=== PATIENT | male | born 1945 | race Caucasian/White ===

== ENCOUNTER 2019-03-29 12:43 | Outpatient (CLI) | payer MEDICARE ==
--- NOTE | 2019-03-29 15:21 | ULT ---
BILATERAL CAROTID DUPLEX ULTRASOUND: HISTORY: Carotid bruit. TECHNIQUE: Jones scale, color flow, and spectral Doppler imaging of the extracranial carotid artery systems was p erformed bilaterally. FINDINGS: There is plaque formation on both sides. The peak systolic velocity in the right ICA measures 131 cm/s with an end-diastolic velocity of 27 cm /s and a systolic ratio of 0.91. The peak systolic velocity in the left ICA measures 91 cm/s with an end-diastolic velocity of 34 cm/s and a systolic ratio of 0.29. Flow in both vertebral arteries remains antegrade. IMPRESSION: Moderate (50-69%) stenosis involving the right internal carotid artery. POS: OFF
== END 2019-03-29 12:44 | disposition home or self-care (01) ==
LOC: ULT 12:43
PROVIDERS: ATTEND Family Medicine
DX: R09.89 Other specified symptoms and signs involving the circulatory and respiratory systems (principal); I65.21 Occlusion and stenosis of right carotid artery
CPT/HCPCS: 93880

== ENCOUNTER 2020-02-24 13:22 | Inpatient (IN) | payer MEDICARE, OTHER ==
[2020-02-24] MEDS ORDERED: Nitroglycerin 0.4 MG TAB (25 Tab Bottle) SL PRN (14:18)
[2020-02-24] MEDS ORDERED: Zolpidem Tartrate 5 MG TAB PO PRN (14:20)
[2020-02-24] MEDS ORDERED: Milk Of Magnesia 30 ML UDCUP PO PRN (14:21)
[2020-02-24] MEDS ORDERED: Acetaminophen 325 MG TAB PO PRN (14:21)
[2020-02-24 14:27] LABS: #Lymphocytes 1.1 thou/uL (1.20-3.40); #Monocytes 0.4 thou/uL (0.11-0.59); #Neutrophils 12.7 thou/uL (1.40-6.50); %Basophils 0.1 % (0.0-1.0); %Eosinophils 0.3 % (0.0-10.0); %Lymphocytes 7.9 % (21.0-51.0); %Monocytes 2.8 % (0.0-10.0); %Neutrophils 88.9 % (42.0-75.0); Hemoglobin 12.3 g/dL (14.0-18.0); Mean Corpuscular HGB CONC 32.1 g/dL (32.0-36.0); Mean Corpuscular Hemoglobin 30.9 pg (27.0-31.0); Mean Corpuscular Volume 96.1 fL (78.0-98.0); Mean Platelet Volume 8.6 fL (7.4-10.4); Platelet Count 290 thou/uL (130-400); RBC Distribution Width 13.2 % (11.5-14.5); Red Blood Cell (RBC) Count 3.98 mill/uL (4.70-6.10); White Blood Cell (WBC) Count 14.2 thou/uL (4.8-10.8)
[2020-02-24] MEDS ORDERED: Aspirin 325 mg Enteric Coated Tablet PO SCH (14:30)
[2020-02-24 14:53] LABS: Cardiac Risk 2.7 (Less than 4.5)
--- NOTE | 2020-02-24 15:13 | RAD ---
Exam: Chest one view HISTORY:Pre-CABG evaluation. Comparison: 09/25/2019 FINDINGS: Cardiac silhouette: Normal Aorta: Atherosclerosis of the aorta Pulmonary vessels: Normal Costophrenic angles: Clear LUNGS: No masses or consolidation. Pneumothorax: None Osseous abnormalities: None IMPRESSION: No acute cardiopulmonary process. Atherosclerosis.
[2020-02-24 15:57] LABS: Bacteria/HPF None Seen HPF (None Seen); Bilirubin Negative (Negative); Blood, Urine Negative (Negative); Clarity Clear (Clear); Glucose, Urine (Dipstick) Normal (Negative); Leukocyte Negative Leu/uL (Negative); Nitrite Negative (Negative); Protein, Urine (Dipstick) Negative (Neg-Trace); RBC/HPF 0-3 HPF (0-3); Squamous Epithelial None Seen HPF (0-3); Urobilinogen Normal mg/dL (Less than 2); WBC/HPF 0-3 HPF (0-3)
[2020-02-24 15:58] LABS: Urine Culture Reflex No No
[2020-02-24] MEDS ORDERED: Communication Order-Pharmacy FS SCH (16:47)
--- NOTE | 2020-02-24 19:01 | ULT ---
CAROTID DOPPLER: 02/24/20 INDICATIONS: Screening prior to CABG procedure. TECHNIQUE: Ultrasound Doppler study performed in the extracranial carotid arteries. Color Doppler with spectral analysis and velocity recordings obtained. FINDINGS: Ultrasound images show intimal thickening and scattered echogenic plaque in the bulbs and internal ca rotid arteries. Velocity records show increased velocities in the right internal carotid artery with a peak systolic velocity recorded at 140 cm/s systolic. Increased velocities are also recorded in the right common ca rotid at 133 cm/s systolic and in the left common carotid at 135 cm/s systolic. Vertebral arteries show antegrade flow. IMPRESSION: 1. Intimal thickening and mild to moderate echogenic plaque bilaterally. 2. Evidence of hemodynamically significant stenosis in the right internal carotid artery. 3. Elevated velocities recorded in both common carotid arteries. Correlation made to a previous carotid Doppler study dated 03/29/19. That exam also describes increase d velocities in the right internal carotid artery measured at 131 cm/s at that time. Consider further characterization with catheter angiogram or CTA of neck. POS: APARNA
[2020-02-24 19:59] LABS: Troponin I 0.555 ng/mL (< 0.028)
[2020-02-24] MEDS ORDERED: Docusate 100 MG CAP PO SCH (21:00)
[2020-02-24] MEDS ORDERED: Rosuvastatin 10 MG TAB PO SCH (21:00)
[2020-02-24] MEDS ORDERED: Amitriptyline HCl 25 MG TAB PO SCH (21:00)
--- NOTE | 2020-02-24 22:59 | CON ---
DATE OF CONSULTATION: 02/24/2020 REQUESTING PHYSICIAN: Dr. Guido. PRIMARY CARE PHYSICIAN: Dr. Sebas Santana. CHIEF COMPLAINT: Shortness of breath. HISTORY OF PRESENT ILLNESS: The patient is a 74-year-old man who over the last few months has had new onset of severe headaches. His first really bad headache started in his neck and jaws and progressed upward, and then was associated with shortness of breath. Equivocates about whether there is any true chest discomfort. It was bad enough that he prompted his to call EMS, and they described that upon their arrival, checking an EKG and reassuring him that he was not having a heart attack. He had a checkup with his primary care physician a couple of days later, and Dr. Santana referred him to Dr. Guido. He was started on Protonix, which seemed to have helped his chest pressure. Echocardiography demonstrated an LVEF of around 50% to 55%. Lexiscan stress test showed a resting EF of 45% and a stress EF of 46% . Of note, there was a fixed inferior wall defect, severe hypokinesis of the septum, and mild global hypokinesis with some lateral ischemia. Cardiac catheterization done today, demonstrates an EF on the order of about 30% or 35% and a long very high-grade stenosis in his LAD starting at about the first septal bat person. 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 He reports having undergone some sort of procedure to remove scar tissue with no improvement in his vision. He underwent esophageal dilatations over about a 3-year period of time from 2013 to 2017. CURRENT MEDICATIONS: 1. Lisinopril/hydrochlorothiazide 10/12.5 once a day. 2. Crestor 10 mg a day. 3. Motrin 2 to 3 tablets a day 4.Prednisone has been taking 20 mg a day and just went to 10 mg a day for his headaches. 4. Elavil 50 mg at bedtime. 5. Allopurinol 300 mg a day. 6. In the hospital, Protonix 40 mg a day has been added. SOCIAL HISTORY: The patient quit smoking in the . He reports nausea and vomiting with doxycycline. FAMILY HISTORY: Significant for lymphoma in his mother. His father in an accident. He has an 80-year-old sister without any known cardiovascular problems. None of his children have any known cardiovascular problems. REVIEW OF SYSTEMS: Negative for any transient eye, speech, facial, or extremity symptoms consistent with TIAs. It is positive for burning pain in his hips when he walks uphill. Negative for any shortness of breath, chest pain, orthopnea, or PND prior to this onset. PHYSICAL EXAMINATION: GENERAL: He is in no distress. VITAL SIGNS: 5 feet and 8 inches, 166 pounds. Heart rate is 66, blood pressure of 120/63, temperature is 98.4, room air O2 saturations are 96%. NECK: He has no xanthelasma. No JVD. He has bilateral carotid bruits. CHEST: Clear to auscultation. He has regular rate and rhythm without murmur or gallop. ABDOMEN: Soft and nontender without masses or bruits. He has palpable radial, femoral, and popliteal pulses bilaterally. His femoral pulses perhaps are slightly diminished, both were associated with bruits. He has strong right posterior tibial pulse. I was not able to palpate either dorsalis pedis pulse of the left or posterior tibial pulse. Capillary refill in his right foot is brisk; in the left foot, it is about 1-1/2 or perhaps 2 seconds. LABORATORY DATA: White count of 14.2, hemoglobin 12.3, hematocrit 38.3, platelets 290,000. Going back as far as January of 2019 and as recently as January of this year, his BUN and creatinine were in the 16 to 17 range and creatinine in the 0.9 range at an outside lab prior to his catheterization. Today his BUN was 18, creatinine 1.1, glucose was 95. His chest x-ray shows some prominence to the vascular markings in the lung with an aortic knob calcification and some slight aortic ectasia, perhaps some flattening of his diaphragms. His carotid ultrasound shows mild amount of plaque in both common carotids and bulbs with internal carotid velocities on the right side of 128, 140, and 128, common carotid velocities of 113, 133, and 133 for a ratio of 1.05. On the left side, internal carotid velocities were 72, 85, and 94. Common carotid velocities were 137, 133, 136, ratio of 0.69. Cardiac catheterization shows right-dominant system. He has some luminal irregularity starting almost at the ostium of the LAD to about its first septal bat person. There is a fairly long segment of diffuse disease with areas of high-grade stenosis including one area that is probably about 95% stenotic involves the diagonal, but it is a very small diagonal. He has a large ramus intermedius that bifurcates distally and there is some mild luminal irregularity in the proximal portion of it, but the stenosis probably only measures on the order of 20% or 30%. He has a high-grade proximal stenosis in his circumflex, but pretty much stays in the groove of the OMs or very small vessels. His right coronary which is dominant and has some mild luminal irregularity in the midportion, has a fairly large arborized posterolateral branch that serves the same distribution as the circumflex would. LVEF is around 30% or 35%. IMPRESSION AND RECOMMENDATION: Severe left anterior descending artery disease with decreasing left ventricular function. We will plan on coronary artery bypass grafting. His carotid disease warrants annual surveillance. His suspected inflow disease causing hip claudication symptoms can be addressed at a later date. Job ID: [id number] [facility]
[2020-02-25] MEDS ORDERED: Albumin 5% 500 ML ONE (06:34)
[2020-02-25] MEDS ORDERED: Fentanyl 250 MCG/5 ML VIAL ONE (06:48)
[2020-02-25] MEDS ORDERED: Dexmedetomidine 200 MCG/2 ML VIAL ONE (06:48)
[2020-02-25] MEDS ORDERED: Midazolam HCl 5 mg/5 ml Vial ONE (06:48)
[2020-02-25] MEDS ORDERED: Heparin 10,000 UNITS/1 ML VIAL 30,000 UNITS in Sodium Chloride 0.9% 1,000 ML FS SCH (07:00)
[2020-02-25] MEDS ORDERED: Midazolam HCl 2 mg/2 ml Vial ONE (07:06)
[2020-02-25] MEDS ORDERED: CEFAZOLIN 2 GM in Premix Bag 1 BAG IVPB SCH (07:15)
[2020-02-25] MEDS ORDERED: Milrinone 10 MG/10 ML VIAL ONE (07:31)
[2020-02-25] MEDS ORDERED: predniSONE 20 MG TAB PO SCH ×2 (09:00→18:00)
[2020-02-25] MEDS ORDERED: Aspirin 325 mg Enteric Coated Tablet PO SCH (09:00)
[2020-02-25] MEDS ORDERED: Allopurinol 300 MG TAB PO SCH (09:00)
[2020-02-25] MEDS ORDERED: Lisinopril/Hydrochlorothiazide 10 mg/12.5 mg Tablet PO SCH (09:00)
[2020-02-25] MEDS ORDERED: Insulin Regular 300 UNITS/3 ML VIAL ONE (09:13)
[2020-02-25] MEDS ORDERED: Vecuronium 10 MG VIAL ONE (10:03)
[2020-02-25] MEDS ORDERED: Lidocaine 1% PF 5 ML VIAL ONE (10:03)
[2020-02-25] MEDS ORDERED: Ketorolac Tromethamine 30 MG/ML VIAL ONE (10:03)
[2020-02-25] MEDS ORDERED: Ondansetron PF 4 MG/2 ML Vial ONE (10:03)
[2020-02-25] MEDS ORDERED: Glycopyrrolate 0.2 MG/ML 5 ML SYRINGE ONE (10:03)
[2020-02-25] MEDS ORDERED: PROPOFOL 200 MG/20 ML VIAL ONE (10:03)
[2020-02-25] MEDS ORDERED: Post-Op Insulin Drip Protocol IVPB ONE (10:25)
[2020-02-25] MEDS ORDERED: niCARdipine 25 MG in Sodium Chloride 0.9% 250 ML 240 ML IVPB PRN (10:25)
[2020-02-25] MEDS ORDERED: Norepinephrine 8 MG/0.9% NS 250 ML IVPB PRN (10:25)
[2020-02-25] MEDS ORDERED: Bisacodyl 10 MG SUPP PR PRN (10:25)
[2020-02-25] MEDS ORDERED: hydrALAZINE 20 MG/ML VIAL SLOW IVP PRN (10:25)
[2020-02-25] MEDS ORDERED: Mag-Al 1200 mg/1200 mg/30 ML UDCUP PO PRN (10:25)
[2020-02-25] MEDS ORDERED: Bisacodyl 5 MG TAB PO PRN (10:25)
[2020-02-25] MEDS ORDERED: Promethazine HCl 25 MG/ML VIAL IM PRN (10:25)
[2020-02-25] MEDS ORDERED: Potassium Chloride 20 MEQ/100 ML PREMIX BAG IVPB PRN (10:25)
[2020-02-25] MEDS ORDERED: Fentanyl 100 MCG/2 ML VIAL SLOW IVP PRN (10:25)
[2020-02-25] MEDS ORDERED: Guaifenesin DM 100-10/5 ML UDCUP PO PRN (10:25)
[2020-02-25] MEDS ORDERED: Morphine 2 MG/ML SYRINGE SLOW IVP PRN ×2 (10:25→17:54)
[2020-02-25] MEDS ORDERED: Acetaminophen 325 MG TAB PO PRN (10:25)
[2020-02-25] MEDS ORDERED: Nitroglycerin 50 MG/250 ML BOT 250 ML IVPB PRN (10:25)
[2020-02-25] MEDS ORDERED: Hetastarch 6% 500 ML 500 ML IVPB PRN (10:25)
[2020-02-25] MEDS ORDERED: Ondansetron PF 4 MG/2 ML Vial IVP PRN (10:25)
[2020-02-25] MEDS ORDERED: Dextrose 5% in Water 1,000 ML IV PRN (10:34)
[2020-02-25] MEDS ORDERED: Dextrose 50% Abboject 50 ML SYRINGE SLOW IVP PRN (10:34)
[2020-02-25] MEDS ORDERED: HUMULIN R 100 UNITS in Sodium Chloride 0.9% 100 ML IVPB SCH (10:34)
[2020-02-25] MEDS ORDERED: Insulin Regular 300 UNITS/3 ML VIAL SC PRN (10:34)
[2020-02-25] MEDS ORDERED: Heparin 30,000 units/30 ml VIAL ONE (10:35)
[2020-02-25] MEDS ORDERED: Sodium Bicarb 50 MEQ/50 ML Abboject 8.4% SYRINGE ONE (10:35)
[2020-02-25] MEDS ORDERED: Magnesium Sulfate 1 GM/2 ML VIAL ONE (10:35)
[2020-02-25] MEDS ORDERED: Papaverine 60 MG/2 ML VIAL ONE (10:35)
[2020-02-25] MEDS ORDERED: DOPamine 400 MG/10 ML VIAL ONE (10:35)
[2020-02-25] MEDS ORDERED: Lidocaine 2% PF 5 ML VIAL ONE (10:35)
[2020-02-25] MEDS ORDERED: Aminocaproic Acid 5 GM/20 ML VIAL ONE (10:35)
[2020-02-25] MEDS ORDERED: Potassium Chloride 60 MEQ/30 ML VIAL ONE (10:35)
[2020-02-25] MEDS ORDERED: Calcium Chloride 1 GM/10 ML Abboject SYRINGE ONE (10:35)
[2020-02-25] MEDS ORDERED: Protamine Sulfate 250 MG/25 ML VIAL ONE (10:35)
[2020-02-25] MEDS ORDERED: Thrombin 5000 UNITS/5 ML VIAL ONE (10:35)
[2020-02-25] MEDS ORDERED: Norepinephrine 4 MG/4 ML VIAL ONE (10:35)
[2020-02-25] MEDS: Sodium Chloride 0.9% 1,000 ML IV SCH (11:25)
[2020-02-25 11:47] LABS: INR-International Normal Ratio 1.2; PTT 36.2 sec (22.9-36.1)
[2020-02-25 11:49] LABS: Hemoglobin 10.9 g/dL (14.0-18.0); Mean Corpuscular HGB CONC 32.9 g/dL (32.0-36.0); Mean Corpuscular Hemoglobin 31.6 pg (27.0-31.0); Mean Corpuscular Volume 96.2 fL (78.0-98.0); Mean Platelet Volume 8.5 fL (7.4-10.4); Platelet Count 239 thou/uL (130-400); RBC Distribution Width 13.3 % (11.5-14.5); Red Blood Cell (RBC) Count 3.44 mill/uL (4.70-6.10); White Blood Cell (WBC) Count 22.7 thou/uL (4.8-10.8)
[2020-02-25] MEDS: Ketorolac Tromethamine 30 MG/ML VIAL IVP SCH ×2 (11:49→17:50)
[2020-02-25 12:06] LABS: Anion Gap 8 mmol/L (10-20); BUN (Urea Nitrogen) 13 mg/dL (8.4-25.7); Calc. Creatinine Clearance 82 mL/min (70-130); Calcium 7.4 mg/dL (7.8-10.44); Carbon Dioxide 26 mmol/L (23-31); Chloride 108 mmol/L (98-107); Estimated GFR-MDRD 86; Glucose 135 mg/dL (83-110); Potassium 3.8 mmol/L (3.5-5.1); Sodium 138 mmol/L (136-145)
[2020-02-25] MEDS: Fentanyl 100 MCG/2 ML VIAL SLOW IVP PRN ×3 (12:12→15:45)
[2020-02-25 12:16] LABS: Band 5 % (5-11); Eosinophils 3 % (0-10); Lymphocytes 13 % (21-51); MDiff Complete? YES; Metamyelocyte 1 % (0-0); Monocytes 3 % (0-10); Neutrophil 75 % (42-75); Platelet Morphology Comment Appears Adequate; Polychromasia SLIGHT = 2-3 cells (100X) (0-2/hpf)
[2020-02-25 12:54] LABS: SARS-CoV-2 MS2 Positive; SARS-CoV-2 N Gene Negative; SARS-CoV-2 S Gene Negative; SARS-CoV-2 orf1ab Negative
[2020-02-25] MEDS: Morphine 2 MG/ML SYRINGE SLOW IVP PRN ×2 (16:12→17:00)
--- NOTE | 2020-02-25 16:17 | RAD ---
PORTABLE CHEST ONE VIEW: 02/25/20 at 11:30 a.m. HISTORY: Postop open heart surgery. COMPARISON: Previous day. FINDINGS/IMPRESSION: Interval postop changes of median sternotomy is seen. Mediastinal drain and left sided chest tube lucia ve been placed. The heart size is stable. The aorta is tortuous. No pneumothoraces, lobar consolidati on, or large effusions are seen. POS: MZA
[2020-02-25] MEDS ORDERED: Morphine 4 MG/ML VIAL SLOW IVP PRN (17:54)
--- NOTE | 2020-02-25 18:07 | OP ---
DATE OF PROCEDURE: 02/25/2020 PROCEDURE PERFORMED: Off pump coronary artery bypass grafting x1 with left internal mammary artery to the distal LAD. PREOPERATIVE DIAGNOSIS: Coronary artery disease with ischemic cardiomyopathy. POSTOPERATIVE DIAGNOSIS: Coronary artery disease with ischemic cardiomyopathy. BUSINESS ASSISTANT: Lencho Vidales. ANESTHESIA: General endotracheal anesthesia. INDICATIONS: The patient is a 74-year-old man, who had a constellation of symptoms that started with pain in his neck and jaws and progressed to severe headache and shortness of breath. He has continued to have these headaches. He equivocates about how prominent a symptom the shortness of breath is and whether there is any chest discomfort of any sort associated with it, but this prompted a cardiac evaluation. Echocardiography was fairly unremarkable, but stress testing was abnormal with fixed inferior wall defect and mid to distal lateral wall deep ischemia. Cardiac catheterization demonstrated a long extremely high-grade lesion in his LAD starting at about the first septal computer installer that LAD wrapped well around the apex and was a large vessel. LVEF on echocardiography was 50% to 55% and was in the mid 40% range on stress testing about a week later. EF on cardiac catheterization yesterday was about 30% to 35%. FINDINGS: Large good quality mammary, the LAD was about a 2 to 2.5 mm good quality vessel. The ascending aorta was diffusely diseased, prompting construction of the bypass off pump. DESCRIPTION OF PROCEDURE: After informed consent was obtained, the patient was taken the operating room and placed in supine position on the operating table. After the induction of general anesthesia, the patient's torso, groins, and lower extremities were prepped and draped in sterile fashion. A median sternotomy was performed. The left internal mammary artery was mobilized as a skeletonized in-situ graft from the level of the xiphoid to the level of the subclavian vein, controlling side branches with hemoclips. An attempt was made to harvest the mammary through an extrapleural exposure. A small rent amenable to repair was made upon initially mobilizing the pleura anteriorly near the level of the xiphoid, but the pleura where it was rather thin walled was widely violated upon developing the space along the apex and the hilum. The patient was heparinized and the mammary ligated and divided distally. There was excellent flow through the mammary. Papaverine solution was instilled intraluminally. The mammary bed was inspected for hemostasis. The TALIB retractor was placed with a Maldonado retractor. The pericardium was opened and the aorta was palpated. There was diffuse hard plaque scattered through the intrapericardial aorta, not amenable to aggressive manipulation. The Maldonado retractor was replaced with a Maquet off pump retractor and the pericardium was marsupialized. A longitudinal incision was made in the pericardium anterior to the left phrenic nerve through which the mammary was passed. The patient was placed in Trendelenburg. Initial attempts at using a lap sponge to facilitate exposure of the LAD were accompanied by hypotension and bradycardia. The lap sponge was removed. The patient was given Robinul and a Levophed drip was initiated. This resulted in an increase in heart rate and blood pressure sufficient to allow for positioning a lap sponge posterolaterally to expose the LAD. An Octopus stabilization system was positioned with limbs paralleling the LAD distally and [place] tapes were passed deep to the LAD proximal and distal to the anticipated level of arteriotomy. The LAD was opened with a Venetie Ira blade and [place] scissors. The mammary was trimmed to length and generously spatulated using a blower mister to clear the field of excess blood and a 2 mm shunt to obturate the heel and the toe of the anastomosis. The mammary was anastomosed to the LAD end to side with running 7-0 Prolene. The [place] tapes and the Octopus retractor were removed. The mammary was tacked to the epicardium. Hemostasis along the suture line was adequate without the need for additional sutures. A posterior pericardial drain and a left pleural drain were brought out through separate incisions and secured to the skin with suture. Right atrial and right ventricular temporary epicardial pacing wires were placed. Heparin was reversed with protamine and when hemostasis was adequate, an anterior mediastinal drain was placed. It was not feasible to completely close the pericardium. The mediastinal fat was tacked back together to cover up the aorta and the inferior medial aspects of the pericardium near the diaphragm were loosely tacked together. The cut surfaces of the sternum were treated with vancomycin paste and platelet-rich GPS. The sternum was reapproximated with #7 stainless steel wires. Soft tissues were irrigated and treated with platelet poor GPS. The fascia was closed over the wires with running #1 Vicryl. The subcutaneous tissue was reapproximated with running 2-0 Vicryl. The skin was closed with a running 3-0 Vicryl subcuticular suture. Dermabond and dressing were applied, and the patient was taken to the intensive care unit in stable condition. Job ID: [id number]
[2020-02-25] MEDS ORDERED: Ketorolac Tromethamine 30 MG/ML VIAL IVP SCH (18:30)
[2020-02-25 18:41] LABS: Hemoglobin 9.6 g/dL (14.0-18.0)
[2020-02-25 19:14] LABS: Potassium 4.5 mmol/L (3.5-5.1)
[2020-02-25] MEDS: Rosuvastatin 10 MG TAB PO SCH (20:46)
[2020-02-25] MEDS: Amitriptyline HCl 25 MG TAB PO SCH (20:46)
[2020-02-25] MEDS ORDERED: Famotidine/PF 20 mg/2ml Vial SLOW IVP SCH (21:00)
[2020-02-26] MEDS: Ketorolac Tromethamine 30 MG/ML VIAL IVP SCH ×4 (00:12→18:55)
[2020-02-26] MEDS: HYDROcodone/Acetaminophen 5/325 mg Tablet PO PRN ×2 (03:11→18:55)
[2020-02-26 04:48] LABS: #Lymphocytes 0.9 thou/uL (1.20-3.40); #Neutrophils 11.7 thou/uL (1.40-6.50); %Basophils 0.2 % (0.0-1.0); %Eosinophils 0.1 % (0.0-10.0); %Lymphocytes 6.7 % (21.0-51.0); %Monocytes 7.2 % (0.0-10.0); %Neutrophils 85.8 % (42.0-75.0); Hemoglobin 9.8 g/dL (14.0-18.0); Mean Corpuscular HGB CONC 33.2 g/dL (32.0-36.0); Mean Corpuscular Hemoglobin 32.1 pg (27.0-31.0); Mean Corpuscular Volume 96.8 fL (78.0-98.0); Platelet Count 200 thou/uL (130-400); RBC Distribution Width 13.2 % (11.5-14.5); Red Blood Cell (RBC) Count 3.05 mill/uL (4.70-6.10); White Blood Cell (WBC) Count 13.7 thou/uL (4.8-10.8)
[2020-02-26 05:13] LABS: Anion Gap 11 mmol/L (10-20); BUN (Urea Nitrogen) 15 mg/dL (8.4-25.7); Calc. Creatinine Clearance 77 mL/min (70-130); Calcium 7.5 mg/dL (7.8-10.44); Carbon Dioxide 23 mmol/L (23-31); Chloride 108 mmol/L (98-107); Estimated GFR-MDRD 81; Glucose 102 mg/dL (83-110); Sodium 138 mmol/L (136-145)
[2020-02-26 05:57] VITALS: BMI 25.8
[2020-02-26] MEDS: Sodium Chloride 0.9% 1,000 ML IV SCH (07:20)
--- NOTE | 2020-02-26 08:22 | RAD ---
Exam: Chest one view HISTORY:Status post open heart surgery Comparison: 02/25/2020 FINDINGS: Cardiac silhouette:Stable mild enlarged cardiac silhouette with sternotomy wires. Lines and tubes: Stable left-sided vascular catheter and mediastinal drainage catheter along with a l eft-sided chest tube Aorta: Atherosclerosis Pulmonary vessels: Normal Costophrenic angles: Small left-sided effusion LUNGS: Persistent opacification of the lung bases. Pneumothorax: None Osseous abnormalities: None IMPRESSION: Findings compatible with recent open heart surgery
[2020-02-26] MEDS: predniSONE 20 MG TAB PO SCH (08:27)
[2020-02-26] MEDS: Famotidine 20 MG TAB PO SCH ×2 (08:27→20:45)
[2020-02-26] MEDS: Aspirin 325 MG TAB PO SCH (08:27)
--- NOTE | 2020-02-26 08:34 | PDOC.CPN ---
- Subjective Date: 02/26/20 Time: 08:32 Interval history: Doing well. CT in place. Eating. chest soreness only - Objective Allergies/Adverse Reactions: Allergies Allergy/AdvReac Type Severity Reaction Status Date / Time doxycycline Allergy Emesis Verified 02/24/20 14:38 Visit Medications: Current Medications Acetaminophen (Tylenol) 650 mg PO Q6H PRN PRN Reason: Headache/Fever Or Mild Pain Hydrocodone Bitart/Acetaminophen ([place] 5/325) 1 tab PO Q4H PRN PRN Reason: Moderate Pain (4-6) Hydrocodone Bitart/Acetaminophen ([place] 5/325) 2 tab PO Q4H PRN PRN Reason: Severe Pain (7-10) Last Admin: 02/26/20 03:11 Dose: 2 tab Al Hydroxide/Mg Hydroxide (Maalox) 30 ml PO Q4H PRN PRN Reason: Indigestion Albumin Human (Albumin 5%) 12.5 gm IVPB Q6H PRN PRN Reason: To Maintain SBP> 90 mmHG Stop: 02/26/20 10:26 Albumin Human (Albumin 5%) 25 gm IVPB Q6H PRN PRN Reason: To Maintain SBP > 90 mmHG Stop: 02/26/20 10:26 Last Admin: 02/25/20 14:05 Dose: 25 gm Albuterol/Ipratropium (Duoneb) 3 ml NEB [id number] PRN PRN Reason: SHORTNESS OF BREATH Amitriptyline HCl (Elavil) 50 mg PO HS [facility] Last Admin: 02/25/20 20:46 Dose: 50 mg Aspirin (Aspirin) 325 mg PO DAILY [facility] Last Admin: 02/26/20 08:27 Dose: 325 mg Bisacodyl (Dulcolax) 10 mg PO Q12H PRN PRN Reason: Constipation Bisacodyl (Dulcolax) 10 mg HI Q12H PRN PRN Reason: Constipation Famotidine (Pepcid) 20 mg PO BID [facility] Last Admin: 02/26/20 08:27 Dose: 20 mg Fentanyl (Sublimaze) 25 mcg SLOW IVP Q2H PRN PRN Reason: Moderate Pain (4-6) Stop: 02/27/20 07:37 Fentanyl (Sublimaze) 50 mcg SLOW IVP Q2H PRN PRN Reason: Severe Pain (7-10) Stop: 02/27/20 07:37 Last Admin: 02/25/20 15:45 Dose: 50 mcg Glucagon (Glucagon) 1 mg SC PRN PRN PRN Reason: PER HYPOGLYCEMIC PROTOCOL Guaifenesin/Dextromethorphan (Robitussin Dm) 15 ml PO Q4H PRN PRN Reason: Cough Hydralazine HCl (Apresoline) 10 mg SLOW IVP Q6H PRN PRN Reason: To Maintain SBP< 140mmHG Ketorolac Tromethamine (Toradol) 30 mg IVP Q6HR [facility] Stop: 03/02/20 12:01 Morphine Sulfate (Morphine) 2 mg SLOW IVP ONE PRN PRN Reason: Pain 1-6 Stop: 02/28/20 17:55 Last Admin: 02/26/20 00:13 Dose: 2 mg Morphine Sulfate (Morphine) 4 mg SLOW IVP ONE PRN PRN Reason: PAIN 7-10 Stop: 02/28/20 17:55 Last Admin: 02/25/20 19:32 Dose: 4 mg Ondansetron HCl (Zofran) 4 mg IVP Q6H PRN PRN Reason: Nausea/Vomiting Last Admin: 02/25/20 11:48 Dose: 4 mg Potassium Chloride (Kcl) 20 meq IVPB PRN PRN PRN Reason: K level </= 4.0 Last Admin: 02/26/20 07:33 Dose: 20 meq Prednisone (Prednisone) 20 mg PO [facility] Last Admin: 02/26/20 08:27 Dose: 20 mg Promethazine HCl (Phenergan) 6.25 mg IM Q4H PRN PRN Reason: Nausea/Vomiting Last Admin: 02/25/20 16:21 Dose: 6.25 mg Rosuvastatin Calcium (Crestor) 10 mg PO [facility] Last Admin: 02/25/20 20:46 Dose: 10 mg Vital Signs & Weight: Vital Signs Temp Pulse Ox 02/26/20 08:00 98.4 F 96 02/26/20 04:00 98.8 F 02/26/20 00:00 98.5 F Admit Weight 168 lb 12.8 oz Weight 170 lb 1.6 oz - Physical Exam General: alert & oriented x3 Neck: midline trachea Cardiac: regular rate, regular rhythm Lungs: normal breath sounds Neuro: grossly intact - Labs Result Diagrams: 02/26/20 04:15 02/26/20 03:30 Troponin/CKMB CK-MB (CK-2) 2.0 ng/mL (0-6.6) 02/24/20 19:03 Troponin I 0.555 ng/mL (< 0.028) H* 02/24/20 19:03 - Assessment/Plan Assessment/Plan: CAD s/p CABG 02/24 HTN carotid dz CVA 02/25 REC Doing well on ASA, statin Add BB IS and PT CT managed by CV surgery CXR stable
[2020-02-26] MEDS ORDERED: Artificial Tears 18 DROP/0.9 ML EA EYE PRN (19:34)
[2020-02-26] MEDS ORDERED: Bisacodyl 5 MG TAB PO PRN (19:34)
[2020-02-26] MEDS ORDERED: Bisacodyl 10 MG SUPP PR PRN (19:34)
[2020-02-26] MEDS ORDERED: Milk Of Magnesia 30 ML UDCUP PO PRN (19:34)
[2020-02-26] MEDS ORDERED: Zolpidem Tartrate 5 MG TAB PO PRN (19:34)
[2020-02-26] MEDS ORDERED: Mag-Al 1200 mg/1200 mg/30 ML UDCUP PO PRN (19:34)
[2020-02-26] MEDS ORDERED: diphenhydrAMINE 25 MG CAP PO PRN (19:34)
[2020-02-26] MEDS ORDERED: Mineral Oil ENEMA PR PRN (19:34)
[2020-02-26] MEDS ORDERED: Nitroglycerin 0.4 MG TAB (25 Tab Bottle) SL PRN (19:34)
[2020-02-26] MEDS: Rosuvastatin 10 MG TAB PO SCH (20:45)
[2020-02-26] MEDS: Guaifenesin DM 100-10/5 ML UDCUP PO PRN (20:45)
[2020-02-26] MEDS: Amitriptyline HCl 25 MG TAB PO SCH (20:45)
[2020-02-26] MEDS: Carvedilol 3.125 MG TAB PO SCH (20:45)
[2020-02-27] MEDS: Ketorolac Tromethamine 30 MG/ML VIAL IVP SCH ×5 (00:01→23:07)
[2020-02-27] MEDS: HYDROcodone/Acetaminophen 5/325 mg Tablet PO PRN (03:32)
[2020-02-27] MEDS: Famotidine 20 MG TAB PO SCH ×2 (08:52→20:05)
[2020-02-27] MEDS: Furosemide 40 MG TAB PO SCH (08:52)
[2020-02-27] MEDS: Potassium Chloride 10 MEQ TAB PO SCH (08:52)
[2020-02-27] MEDS: predniSONE 20 MG TAB PO SCH (08:52)
[2020-02-27] MEDS: Aspirin 325 MG TAB PO SCH (08:52)
--- NOTE | 2020-02-27 10:44 | PDOC.CPN ---
- Subjective Date: 02/27/20 Time: 10:40 Interval history: No complaints. No CP/SOB/ROBERTSON. BP dropped this morning. No documentation of vitals. Nurse reports that it was 89/62 prior to him giving lasix 40mg. He held Coreg. Patient without dizziness or near syncope. - Review of Systems General: denies: fever/chills, weight/appetite/sleep changes, night sweats, fatigue Respiratory: denies: cough, congestion, shortness of breath, exercise intolerance Cardiovascular: denies: chest pain, palpitation, edema, paroxysmal nocturnal dyspnea, orthopnea Gastrointestinal: denies: nausea, vomiting, diarrhea, constipation, abd pain, GI bleeding Musculoskeletal: denies: pain, tenderness, stiffness, swelling, arthritis/ arthralgias Neurological: denies: numbness, syncope, seizure, weakness - Objective Allergies/Adverse Reactions: Allergies Allergy/AdvReac Type Severity Reaction Status Date / Time doxycycline Allergy Emesis Verified 02/24/20 14:38 Visit Medications: Current Medications Acetaminophen (Tylenol) 650 mg PO Q6H PRN PRN Reason: Headache/Fever Or Mild Pain Hydrocodone Bitart/Acetaminophen ([place] 5/325) 1 tab PO Q4H PRN PRN Reason: Moderate Pain (4-6) Last Admin: 02/26/20 18:55 Dose: 1 tab Hydrocodone Bitart/Acetaminophen ([place] 5/325) 2 tab PO Q4H PRN PRN Reason: Severe Pain (7-10) Last Admin: 02/27/20 03:32 Dose: 2 tab Al Hydroxide/Mg Hydroxide (Maalox) 30 ml PO Q4H PRN PRN Reason: Indigestion Last Admin: 02/27/20 08:54 Dose: 30 ml Albuterol/Ipratropium (Duoneb) 3 ml NEB [id number] PRN PRN Reason: SHORTNESS OF BREATH Amitriptyline HCl (Elavil) 50 mg PO HS [facility] Last Admin: 02/26/20 20:45 Dose: 50 mg Artificial Tears (Tears Naturale) 0 drop EA EYE PRN PRN PRN Reason: Dry Eyes Aspirin (Aspirin) 325 mg PO DAILY [facility] Last Admin: 02/27/20 08:52 Dose: 325 mg Bisacodyl (Dulcolax) 10 mg PO Q12H PRN PRN Reason: Constipation Last Admin: 02/26/20 20:46 Dose: 10 mg Bisacodyl (Dulcolax) 10 mg SC Q12H PRN PRN Reason: Constipation Diphenhydramine HCl (Benadryl) 25 mg PO Q6H PRN PRN Reason: Itching & Insomnia or [place] Famotidine (Pepcid) 20 mg PO BID [facility] Last Admin: 02/27/20 08:52 Dose: 20 mg Furosemide (Lasix) 40 mg PO DAILY [facility] Last Admin: 02/27/20 08:52 Dose: 40 mg Glucagon (Glucagon) 1 mg SC PRN PRN PRN Reason: PER HYPOGLYCEMIC PROTOCOL Guaifenesin/Dextromethorphan (Robitussin Dm) 15 ml PO Q4H PRN PRN Reason: Cough Last Admin: 02/26/20 20:45 Dose: 15 ml Hydralazine HCl (Apresoline) 10 mg SLOW IVP Q6H PRN PRN Reason: To Maintain SBP< 140mmHG Ketorolac Tromethamine (Toradol) 30 mg IVP Q6HR [facility] Stop: 03/02/20 12:01 Last Admin: 02/27/20 06:36 Dose: 30 mg Magnesium Hydroxide (Milk Of Magnesium) 30 ml PO Q12H PRN PRN Reason: Constipation Last Admin: 02/27/20 08:56 Dose: 30 ml Metoprolol Tartrate (Lopressor) 12.5 mg PO BID [facility] Mineral Oil (Fleet Mineral Oil) 133 ml SC DAILYPRN PRN PRN Reason: Constipation Morphine Sulfate (Morphine) 2 mg SLOW IVP ONE PRN PRN Reason: Pain 1-6 Stop: 02/28/20 17:55 Last Admin: 02/26/20 00:13 Dose: 2 mg Morphine Sulfate (Morphine) 4 mg SLOW IVP ONE PRN PRN Reason: PAIN 7-10 Stop: 02/28/20 17:55 Last Admin: 02/25/20 19:32 Dose: 4 mg Nitroglycerin (Nitrostat) 0.4 mg SL Q5MIN PRN PRN Reason: Chest Pain Ondansetron HCl (Zofran) 4 mg IVP Q6H PRN PRN Reason: Nausea/Vomiting Last Admin: 02/25/20 11:48 Dose: 4 mg Potassium Chloride (Kcl) 20 meq IVPB PRN PRN PRN Reason: K level </= 4.0 Last Admin: 02/26/20 07:33 Dose: 20 meq Potassium Chloride (Klor-Con 10) 10 meq PO QA[facility] Last Admin: 02/27/20 08:52 Dose: 10 meq Prednisone (Prednisone) 20 mg PO QAM [facility] Last Admin: 02/27/20 08:52 Dose: 20 mg Promethazine HCl (Phenergan) 6.25 mg IM Q4H PRN PRN Reason: Nausea/Vomiting Last Admin: 02/25/20 16:21 Dose: 6.25 mg Rosuvastatin Calcium (Crestor) 10 mg PO HS [facility] Last Admin: 02/26/20 20:45 Dose: 10 mg Sodium Chloride (Flush - Normal Saline) 10 ml IVF PRN PRN PRN Reason: Saline Flush Zolpidem Tartrate (Ambien) 5 mg PO HSPRN PRN PRN Reason: Insomnia Vital Signs & Weight: Vital Signs Temp Pulse Resp BP Pulse Ox 02/27/20 03:35 98.2 F 83 22 H 149/73 H 100 Admit Weight 168 lb 12.8 oz Weight 172 lb 3.2 oz - Physical Exam General: alert & oriented x3, appears well HEENT: mucus membranes moist Neck: supple neck Cardiac: regular rate and rhythm Lungs: clear to auscultation, normal exam Neuro: grossly intact Abdomen: soft Extremities: 1+ LE edema Skin: clear Musculoskeletal: no pain - Labs Result Diagrams: 02/26/20 04:15 02/26/20 03:30 Troponin/CKMB CK-MB (CK-2) 2.0 ng/mL (0-6.6) 02/24/20 19:03 Troponin I 0.555 ng/mL (< 0.028) H* 02/24/20 19:03 - Assessment/Plan Assessment/Plan: 1. CAD s/p CABG 02/24 2. HTN 3. Hx CVA 4. Carotid Artery Disease BP low this morning. Patient asymptomatic. Advised to notify us if symptoms develop. Stop Coreg as he is already on Toprol. May need to hold lasix tomorrow pending BP readings today.
[2020-02-27] MEDS: Metoprolol Tartrate 25 MG TAB PO SCH ×2 (12:48→20:05)
[2020-02-27] MEDS: Carvedilol 3.125 MG TAB PO SCH (12:49)
[2020-02-27] MEDS: Amitriptyline HCl 25 MG TAB PO SCH (20:05)
[2020-02-27] MEDS: Rosuvastatin 10 MG TAB PO SCH (20:05)
[2020-02-28] MEDS: Ketorolac Tromethamine 30 MG/ML VIAL IVP SCH ×3 (05:08→17:57)
[2020-02-28] MEDS: Famotidine 20 MG TAB PO SCH ×2 (08:05→21:23)
[2020-02-28] MEDS: Metoprolol Tartrate 25 MG TAB PO SCH (08:05)
[2020-02-28] MEDS: Aspirin 325 MG TAB PO SCH (08:05)
[2020-02-28] MEDS: Furosemide 40 MG TAB PO SCH (08:06)
[2020-02-28] MEDS: Guaifenesin DM 100-10/5 ML UDCUP PO PRN (08:06)
[2020-02-28] MEDS: predniSONE 20 MG TAB PO SCH (08:06)
[2020-02-28] MEDS: Potassium Chloride 10 MEQ TAB PO SCH (08:06)
[2020-02-28 09:04] LABS: #Eosinphils 0.1 thou/uL (0.0-0.7); #Lymphocytes 2.1 thou/uL (1.20-3.40); #Monocytes 0.6 thou/uL (0.11-0.59); #Neutrophils 9.8 thou/uL (1.40-6.50); %Basophils 0.1 % (0.0-1.0); %Lymphocytes 16.8 % (21.0-51.0); %Monocytes 4.9 % (0.0-10.0); %Neutrophils 77.3 % (42.0-75.0); Mean Corpuscular HGB CONC 32.5 g/dL (32.0-36.0); Mean Corpuscular Hemoglobin 31.9 pg (27.0-31.0); Mean Corpuscular Volume 98.1 fL (78.0-98.0); Platelet Count 211 thou/uL (130-400); RBC Distribution Width 13.1 % (11.5-14.5); Red Blood Cell (RBC) Count 3.15 mill/uL (4.70-6.10); White Blood Cell (WBC) Count 12.7 thou/uL (4.8-10.8)
[2020-02-28 09:24] LABS: Anion Gap 10 mmol/L (10-20); BUN (Urea Nitrogen) 25 mg/dL (8.4-25.7); Calc. Creatinine Clearance 67 mL/min (70-130); Calcium 8.4 mg/dL (7.8-10.44); Carbon Dioxide 26 mmol/L (23-31); Chloride 104 mmol/L (98-107); Estimated GFR-MDRD 67; Glucose 147 mg/dL (83-110); Sodium 136 mmol/L (136-145)
[2020-02-28] MEDS ORDERED: Amiodarone 200 MG TAB PO SCH (14:00)
[2020-02-28] MEDS: Carvedilol 3.125 MG TAB PO SCH (17:56)
[2020-02-28] MEDS: Amiodarone 200 MG TAB PO SCH (21:23)
[2020-02-28] MEDS: Rosuvastatin 10 MG TAB PO SCH (21:23)
[2020-02-28] MEDS: Amitriptyline HCl 25 MG TAB PO SCH (21:23)
[2020-02-29] MEDS: Ketorolac Tromethamine 30 MG/ML VIAL IVP SCH ×2 (00:41→05:14)
[2020-02-29] MEDS: HYDROcodone/Acetaminophen 5/325 mg Tablet PO PRN (02:13)
[2020-02-29] MEDS ORDERED: predniSONE 20 MG TAB PO SCH (07:28)
[2020-02-29] MEDS: Furosemide 40 MG TAB PO SCH (08:53)
[2020-02-29] MEDS: Carvedilol 3.125 MG TAB PO SCH (08:53)
[2020-02-29] MEDS: Famotidine 20 MG TAB PO SCH (08:53)
[2020-02-29] MEDS: Aspirin 325 MG TAB PO SCH (08:54)
[2020-02-29] MEDS: Amiodarone 200 MG TAB PO SCH (08:54)
[2020-02-29] MEDS: Potassium Chloride 10 MEQ TAB PO SCH (08:54)
[2020-02-29] MEDS ORDERED: predniSONE 5 MG TAB PO SCH (09:00)
[2020-02-29 09:21] VITALS: BP 113/59; TEMP 97.7
--- NOTE | 2020-03-02 06:14 | PQF ---
DEMETRIA NATHAN GEORGE MD [id number] CLINICAL DOCUMENTATION CLARIFICATION FORM: POST DISCHARGE Addendum to original discharge summary date: ____ Late entry note date: __ DATE:03/02/2020 ATTN: Dr Cross. Rio Please exercise your independent, professional judgment in responding to the clarification form. Clinical indicators are provided on the bottom of this form for your review Please check appropriate box(s) to clarify if the following diagnosis has been ruled in or ruled out NSTEMI [ ] Ruled in diagnosis [ ] Continue to treat [ ] Resolved [ ] Ruled out diagnosis [ x ] Cannot rule out diagnosis [ ] Other diagnosis [ ] Unable to determine In addition, please specify: Present on Admission (POA): [ x] Yes [ ] No [ ] Unable to determine For continuity of documentation, please document condition throughout progress notes and discharge summary. Thank You. CLINICAL INDICATORS - SIGNS / SYMPTOMS / LABS Laboratory 02/23 CK-MB 2.0, troponin I 0.555 Vital signs 02/23 BP 109/56, Pulse 63. Res[ 16. Temp 98.6 Operative report p1 02/24 Dr Cross constellation of symptoms that started with pain in his neck and jaw and processed to severe headache and SOB Operative report p1 02/24 Dr Cross Echocardiography was faily unremarkable but stress testing was abnormal with fixed interior walL defect and mid to distal lateral wall deep Scanned PN p5 Probable NSTEMI Consult 02/23 severe hypokinesis of the septum and mild global hypokinesis with some lateral ischemia RISK FACTORS Operative report p1 02/24 CAD Operative report p1 02/24 Ischemic Cardiomyopathy Operative report p1 02/24 HTN Operative report p1 02/24 Carotid disease Operative report p1 02/24 Former smoker Operative report p1 02/24 74 years old male TREATMENTS Mar 01/25 Coreg 1.5625 mg oral MAR 02/27 Cordarone 400 mg oral Operative report p1 02/24 CABG (This form is maintained as a part of the permanent medical record) 2014 [employer]. All Rights Reserved [email or web address]
--- NOTE | 2020-03-02 06:15 | PQF ---
DEMETRIA NATHAN GEORGE [id number] [facility]-294 [id number] CLINICAL DOCUMENTATION CLARIFICATION FORM: POST DISCHARGE Addendum to original discharge summary date: ____ Late entry note date: __ DATE:03/02/2020 ATTN: Rio Carson Please exercise your independent, professional judgment in responding to the clarification form. Clinical indicators are provided on the bottom of this form for your review Please check appropriate box(s): [ ] Cardiogenic Shock [ ] Shock Unspecified [x ] Other diagnosis weaning from CPB/fresh off CPB [ ] Unable to determine In addition, please specify: Present on Admission (POA): [ ] Yes [ ] No [ ] Unable to determine For continuity of documentation, please document condition throughout progress notes and discharge summary. Thank You. CLINICAL INDICATORS - SIGNS / SYMPTOMS / LABS Laboratory 02/23 CK-MB 2.0, troponin I 0.555 Vital signs 02/24 BP 93/58, Pulse 111, Resp 24 Vital signs 02/26 BP 89/51, pulse 109, Resp 22, Temp 98.2 Operative report p1 02/24 Dr Cross constellation of symptoms that started with pain in his neck and jaw and processed to severe headache and SOB Operative report p1 02/24 Dr Cross Echocardiography was faily unremarkable but stress testing was abnormal with fixed interior wall defect and mid to distal lateral wall deep Operative report p2 02/24 Dr Cross Pt had hypotension and bradycardia Scanned PN p5 Probable NSTEMI RISK FACTORS Operative report p1 02/24 CAD Operative report p1 02/24 Ischemic Cardiomyopathy Operative report p1 02/24 HTN Operative report p1 02/24 Carotid disease Operative report p1 02/24 Former smoker Operative report p1 02/24 74 years old male TREATMENTS MAR 02/24 IV Levophed 250 ml Coreg 1.5625 mg oral MAR 02/27 Cordarone 400 mg oral Operative report p1 02/24 CABG Operative report p1 02/24 Trendelenburg postilion (This form is maintained as a part of the permanent medical record) 2014 [employer] All Rights Reserved [email or web address]
--- NOTE | 2020-03-06 10:13 | DIS ---
DATE OF ADMISSION: 02/24/2020 DATE OF DISCHARGE: 02/29/2020 PROCEDURES PERFORMED: Cardiac catheterization on 02/24/2020, off pump coronary artery bypass grafting x1 with left internal mammary artery to the distal LAD on 02/25/2020. HISTORY OF PRESENT ILLNESS AND HOSPITAL COURSE: The patient is a 74-year-old man, who came to medical attention because of a constellation of symptoms surrounding new onset severe headaches. The patient describes having had an episode of intense pain starting in his neck and jaws that proceeded to an extremely bad headache that was associated with shortness of breath. He equivocated about the severity of that shortness of breath and whether there was any associated chest discomfort, but cardiac evaluation demonstrated a fairly unremarkable echocardiogram. Stress testing demonstrated a fixed inferior wall defect with distal lateral wall ischemia. 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 Of note, his EF on echocardiography was about 50% to 55% and was in the mid 40s on stress testing, but about a week later, his EF on cardiac catheterization was only about 30% to 35%. In retrospect, history suggestive of some chest discomfort the evening prior to his catheterization was elicited and a troponin done the evening following his cardiac catheterization was 0.555, suggesting that perhaps he had had a non-ST elevation myocardial infarction the previous day. 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 The night of his surgery, he had severe headaches without any other neurologic symptoms or any signs that ultimately were brought under control with increasing his dose of Toradol. He was transferred to the telemetry diaz mid day on postoperative day 1. Followup echocardiography showed that his EF was still in the 30% to 35% range as had been seen on catheterization and he had some self-limited atrial fibrillation as well as wide-complex tachycardia, prompting securing a LifeVest and addition of amiodarone prior to his discharge on postoperative day 4. Job ID: [id number]
--- NOTE | 2020-03-09 06:21 | PQF ---
DEMETRIA NATHAN GEORG [id number] O-[id number] CLINICAL DOCUMENTATION CLARIFICATION FORM: POST DISCHARGE Addendum to original discharge summary date: ____ Late entry note date: __ DEFER TO SOFTWARE VALIDATION TECHNICIAN DATE:03/09/2020 ATTN: Keenan Carson Please exercise your independent, professional judgment in responding to the clarification form. Clinical indicators are provided on the bottom of this form for your review Please check appropriate box(s): [ ] NSTEMI (MT type I) [ ] NSTEMI type II due to (please specify condition) [ ] Other diagnosis [ ] Unable to determine CLINICAL INDICATORS - SIGNS / SYMPTOMS / LABS Laboratory 02/23 CK-MB 2.0, troponin I 0.555 Vital signs 02/23 BP 109/56, Pulse 63. Res[ 16. Temp 98.6 Operative report p1 02/24 Dr Cross constellation of symptoms that started with pain in his neck and jaw and processed to severe headache and SOB Operative report p1 02/24 Dr Cross Echocardiography was faily unremarkable but stress testing was abnormal with fixed interior wall defect and mid to distal lateral wall deep Scanned PN p5 Probable NSTEMI Consult 02/23 severe hypokinesis of the septum and mild global hypokinesis with some lateral ischemia Physician Documentation 03/08 NSTEMI cannot be rule out RISK FACTORS Operative report p1 02/24 CAD Operative report p1 02/24 Ischemic Cardiomyopathy Operative report p1 02/24 HTN Operative report p1 02/24 Carotid disease Operative report p1 02/24 Former smoker Operative report p1 02/24 74 years old male TREATMENTS Mar 01/25 Coreg 1.5625 mg oral MAR 02/27 Cordarone 400 mg oral Operative report p1 02/24 CABG Cardiac Cath 02/23 (This form is maintained as a part of the permanent medical record) 2014 [employer] All Rights Reserved [email or web address]
--- NOTE | 2020-03-09 18:35 | PQF ---
DEMETRIA NATHAN RICARDO MD [id number] CLINICAL DOCUMENTATION CLARIFICATION FORM: POST DISCHARGE Addendum to original discharge summary date: ____ Late entry note date: __ DATE:03/09/20 ATTN:Seferino Lozada Please exercise your independent, professional judgment in responding to the clarification form. Clinical indicators are provided on the bottom of this form for your review Please check appropriate box(s): [ ] NSTEMI (MT type I) [ ] NSTEMI type II due to (please specify condition) [ ] Other diagnosis [ ] Unable to determine CLINICAL INDICATORS - SIGNS / SYMPTOMS / LABS Laboratory 02/23 CK-MB 2.0, troponin I 0.555 Vital signs 02/23 BP 109/56, Pulse 63. Res[ 16. Temp 98.6 Operative report p1 02/24 Dr Cross constellation of symptoms that started with pain in his neck and jaw and processed to severe headache and SOB Operative report p1 02/24 Dr Cross Echocardiography was faily unremarkable but stress testing was abnormal with fixed interior wall defect and mid to distal lateral wall deep Scanned PN p5 Probable NSTEMI Consult 02/23 severe hypokinesis of the septum and mild global hypokinesis with some lateral ischemia Physician Documentation 03/08 NSTEMI cannot be rule out RISK FACTORS Operative report p1 02/24 CAD Operative report p1 02/24 Ischemic Cardiomyopathy Operative report p1 02/24 HTN Operative report p1 02/24 Carotid disease Operative report p1 02/24 Former smoker Operative report p1 02/24 74 years old male TREATMENTS Mar 01/25 Coreg 1.5625 mg oral NOV 18 Cordarone 400 mg oral Operative report p1 02/24 CABG Cardiac Cath 02/23 (This form is maintained as a part of the permanent medical record) 2014 [employer]. All Rights Reserved [email or web address]
== END 2020-02-29 14:07 | disposition home or self-care (01) | DRG 236 ==
LOC: 2NO 13:22 → CCU 02-25 06:45 → 2NO 02-26 18:41
PROVIDERS: ADMIT Internal Medicine Cardiovascular Disease; ATTEND Internal Medicine Cardiovascular Disease
PROC: 02100Z9 Bypass Coronary Artery, One Artery from Left Internal Mammary, Open Approach (ICD-10-PCS; principal; 2020-02-25)
PROC: 3E033XZ Introduction of Vasopressor into Peripheral Vein, Percutaneous Approach (ICD-10-PCS; 2020-02-25)
DX: I21.4 Non-ST elevation (NSTEMI) myocardial infarction (principal); I25.10 Atherosclerotic heart disease of native coronary artery without angina pectoris; I10 Essential (primary) hypertension; H53.8 Other visual disturbances; I25.5 Ischemic cardiomyopathy; I65.23 Occlusion and stenosis of bilateral carotid arteries; M10.9 Gout, unspecified; Z11.59 Encounter for screening for other viral diseases; Z85.828 Personal history of other malignant neoplasm of skin; I69.398 Other sequelae of cerebral infarction; Z79.899 Other long term (current) drug therapy; Z79.52 Long term (current) use of systemic steroids; Z87.891 Personal history of nicotine dependence; Z88.1 Allergy status to other antibiotic agents; I95.9 Hypotension, unspecified; R00.1 Bradycardia, unspecified
CPT/HCPCS: 36415; 36416; 71045; 80048; 80061; 81001; 82553; 83615; 84484; 85025; 85610; 85730; 86850; 86900; 86901; 87635; 93005; 93010; 93306; 93798; 93880; J0690; J1265; J1642; J1644; J1815; J1885; J2001; J2250; J2260; J2270; J2405; J2440; J2550; J2704; J2720; J3010; J3370; J3475; J3480; J7512; P9045; S0017; S0028; U0003

== ENCOUNTER 2021-04-17 14:28 | Observation (INO) | payer MEDICARE ==
[2021-04-17] MEDS ORDERED: Aspirin Chewable 81 MG TAB ONE (14:57)
[2021-04-17] MEDS ORDERED: Proparacaine 0.5% Opth 15 ML BOT ONE (14:57)
[2021-04-17 15:49] LABS: #Eosinphils 0.3 thou/uL (0.0-0.7); #Lymphocytes 2.4 thou/uL (1.20-3.40); #Monocytes 0.7 thou/uL (0.11-0.59); #Neutrophils 5.9 thou/uL (1.40-6.50); %Basophils 0.5 % (0.0-1.0); %Eosinophils 2.9 % (0.0-10.0); %Lymphocytes 25.5 % (21.0-51.0); %Monocytes 7.5 % (0.0-10.0); %Neutrophils 63.7 % (42.0-75.0); Hemoglobin 14.4 g/dL (14.0-18.0); Mean Corpuscular HGB CONC 33.6 g/dL (32.0-36.0); Mean Corpuscular Hemoglobin 32.2 pg (27.0-31.0); Mean Corpuscular Volume 95.8 fL (78.0-98.0); Mean Platelet Volume 8.8 fL (7.4-10.4); Platelet Count 226 thou/uL (130-400); RBC Distribution Width 12.5 % (11.5-14.5); Red Blood Cell (RBC) Count 4.48 mill/uL (4.70-6.10); White Blood Cell (WBC) Count 9.2 thou/uL (4.8-10.8)
[2021-04-17 16:00] LABS: PTT 35.6 sec (22.9-36.1); Prothrombin Time 13.5 sec (12.0-14.7)
[2021-04-17 16:09] LABS: ALT (SGPT) 25 U/L (8-55); AST (SGOT) 19 U/L (5-34); Albumin 3.9 g/dL (3.4-4.8); Alkaline Phosphatase 69 U/L (40-110); Anion Gap 9 mmol/L (10-20); BUN (Urea Nitrogen) 17 mg/dL (8.4-25.7); Bilirubin, Total 0.6 mg/dL (0.2-1.2); Calc. Creatinine Clearance 0 mL/min (70-130); Calcium 8.8 mg/dL (7.8-10.44); Carbon Dioxide 29 mmol/L (23-31); Chloride 101 mmol/L (98-107); Globulin 2.5 g/dL (2.4-3.5); Glucose 84 mg/dL (83-110); Potassium 3.8 mmol/L (3.5-5.1); Protein, Total 6.4 g/dL (5.8-8.1); Sodium 135 mmol/L (136-145)
[2021-04-17] MEDS ORDERED: Iopamidol-370 76% 500 ML 1 ML ONE (16:28)
[2021-04-17] MEDS ORDERED: hydrALAZINE 20 MG/ML VIAL SLOW IVP PRN (17:53)
[2021-04-17] MEDS ORDERED: Labetalol HCl 100 MG/20 ML VIAL SLOW IVP PRN (17:53)
[2021-04-17] MEDS ORDERED: Acetaminophen 325 MG TAB PO PRN (18:00)
[2021-04-17] MEDS ORDERED: HYDROcodone/Acetaminophen 5/325 mg Tablet PO PRN (18:00)
[2021-04-17] MEDS ORDERED: Ondansetron ODT 4 MG TAB PO PRN (18:00)
[2021-04-17] MEDS ORDERED: Enoxaparin Sodium 40 MG/0.4 ML SYRINGE ONE (18:35)
[2021-04-17 19:08] LABS: Hemoglobin A1c 5.4 % (4.0-6.0)
[2021-04-17] MEDS ORDERED: Enoxaparin Sodium 40 MG/0.4 ML SYRINGE SC SCH (19:45)
[2021-04-17 19:59] LABS: SARS-CoV-2 NAA Rapid Test Not Detected (NotDetected)
[2021-04-17] MEDS ORDERED: Amitriptyline HCl 25 MG TAB PO SCH (21:00)
[2021-04-17] MEDS ORDERED: Rosuvastatin 20 MG TAB PO SCH (21:00)
[2021-04-18] MEDS: Famotidine 20 MG TAB PO SCH ×2 (01:14→09:50)
[2021-04-18] MEDS ORDERED: Famotidine 20 MG TAB PO SCH (01:15)
[2021-04-18] MEDS ORDERED: Rosuvastatin 20 MG TAB PO SCH (01:15)
[2021-04-18] MEDS ORDERED: Amitriptyline HCl 25 MG TAB PO SCH ×2 (01:15→21:00)
[2021-04-18 01:30] VITALS: BMI 26.2
[2021-04-18 05:35] LABS: #Eosinphils 0.2 thou/uL (0.0-0.7); #Lymphocytes 2.2 thou/uL (1.20-3.40); #Monocytes 0.7 thou/uL (0.11-0.59); #Neutrophils 5.9 thou/uL (1.40-6.50); %Basophils 0.3 % (0.0-1.0); %Eosinophils 2.4 % (0.0-10.0); %Lymphocytes 24.8 % (21.0-51.0); %Monocytes 7.7 % (0.0-10.0); %Neutrophils 64.9 % (42.0-75.0); Mean Corpuscular HGB CONC 33.5 g/dL (32.0-36.0); Mean Corpuscular Volume 95.6 fL (78.0-98.0); Mean Platelet Volume 8.7 fL (7.4-10.4); Platelet Count 232 thou/uL (130-400); RBC Distribution Width 12.4 % (11.5-14.5); Red Blood Cell (RBC) Count 4.38 mill/uL (4.70-6.10)
[2021-04-18 05:59] LABS: Anion Gap 8 mmol/L (10-20); BUN (Urea Nitrogen) 15 mg/dL (8.4-25.7); Calc. Creatinine Clearance 77 mL/min (70-130); Calcium 8.7 mg/dL (7.8-10.44); Carbon Dioxide 30 mmol/L (23-31); Cardiac Risk 2.6 (Less than 4.5); Chloride 103 mmol/L (98-107); Cholesterol 125 mg/dl (< 200 Desired); Glucose 102 mg/dL (83-110); HDL Cholesterol 49 mg/dL (>60 Neg Risk); LDL Cholesterol, Calculated 65 mg/dL; Sodium 137 mmol/L (136-145); Triglycerides 55 mg/dL (Less than 150)
[2021-04-18] MEDS ORDERED: Carvedilol 3.125 MG TAB PO SCH ×2 (08:00→17:00)
[2021-04-18] MEDS ORDERED: Lisinopril/Hydrochlorothiazide 10 mg/12.5 mg Tablet PO SCH (09:00)
[2021-04-18] MEDS ORDERED: Aspirin 81 mg Enteric Coated Tablet PO SCH (09:00)
[2021-04-18] MEDS ORDERED: Clopidogrel Bisulfate 75 MG TAB PO SCH (09:00)
[2021-04-18] MEDS ORDERED: Enoxaparin Sodium 40 MG/0.4 ML SYRINGE SC SCH (09:00)
[2021-04-18] MEDS ORDERED: Allopurinol 300 MG TAB PO SCH (09:00)
[2021-04-18] MEDS ORDERED: Magnevist 469MG/ML 20 ML VIAL ONE (09:09)
[2021-04-18 15:55] VITALS: BP 148/69; TEMP 97.6
[2021-04-18] MEDS ORDERED: Non-Formulary Item 1 EACH (Amitriptyline Hcl [Elavil] 50 MG Tab) PO SCH (21:00)
[2021-04-19] MEDS ORDERED: Potassium Chloride 10 MEQ TAB PO SCH (08:00)
[2021-04-19] MEDS ORDERED: Rosuvastatin 10 MG TAB PO SCH (09:00)
[2021-04-19] MEDS ORDERED: Furosemide 40 MG TAB PO SCH (09:00)
[2021-04-19] MEDS ORDERED: Allopurinol 300 MG TAB PO SCH (09:00)
== END 2021-04-18 17:10 | disposition home or self-care (01) ==
LOC: ERS 14:28 → SUATTDRO 14:28 → ERHOLD 17:18 → 2SE 04-18 00:12
PROVIDERS: ADMIT Family Medicine; ATTEND Internal Medicine
DX: H47.012 Ischemic optic neuropathy, left eye (principal); I69.398 Other sequelae of cerebral infarction; H53.8 Other visual disturbances; I25.10 Atherosclerotic heart disease of native coronary artery without angina pectoris; I25.5 Ischemic cardiomyopathy; I48.91 Unspecified atrial fibrillation; I10 Essential (primary) hypertension; E78.5 Hyperlipidemia, unspecified; M10.9 Gout, unspecified; G47.00 Insomnia, unspecified; I65.23 Occlusion and stenosis of bilateral carotid arteries; Z87.891 Personal history of nicotine dependence; Z79.52 Long term (current) use of systemic steroids; Z79.82 Long term (current) use of aspirin; Z79.899 Other long term (current) drug therapy; Z88.1 Allergy status to other antibiotic agents; Z95.1 Presence of aortocoronary bypass graft; Z98.890 Other specified postprocedural states; Z20.822 Contact with and (suspected) exposure to COVID-19
CPT/HCPCS: 0240U; 70450; 70496; 70498; 70553; 80048; 80053; 80061; 83036; 85025 ×2; 85610; 85652; 85730; 86140; 93005; 93880; 96372; 97139 ×3; 97535; 99285; G0378 ×2; 36415; A9579; J1650; Q9967

== ENCOUNTER 2021-10-05 11:59 | Outpatient (CLI) | payer MEDICARE ==
[2021-10-05 23:48] LABS: SARS-CoV-2 PCR by NAA Not Detected (NotDetected)
== END 2021-10-05 12:00 | disposition home or self-care (01) ==
LOC: LABBT 11:59
PROVIDERS: ATTEND Ophthalmology Retina Specialist
DX: Z01.812 Encounter for preprocedural laboratory examination (principal); Z20.822 Contact with and (suspected) exposure to COVID-19
CPT/HCPCS: U0003; U0005

== ENCOUNTER 2021-10-09 08:22 | Day surgery (SDC) | payer MEDICARE ==
[2021-10-04 13:22] VITALS: BMI 27.3
[~2021-10-09 08:22] MED LIST: EPINEPHrine 0.3 MG in Ophthalmic Irrigation Solution 500 ML IRR SCH; Famotidine/PF 20 mg/2ml Vial ONE; Fentanyl 100 MCG/2 ML VIAL ONE
[2021-10-09] MEDS ORDERED: Phenylephrine 2.5% Ophth Soln 5 ML BOT ONE (09:27)
[2021-10-09] MEDS ORDERED: Cyclopentolate 1% Opth Drop 2 ML BOT ONE (09:27)
[2021-10-09] MEDS ORDERED: PROPOFOL 200 MG/20 ML VIAL ONE (10:19)
[2021-10-09] MEDS ORDERED: CEFAZOLIN 1 GM VIAL ONE (10:19)
[2021-10-09] MEDS ORDERED: Ondansetron PF 4 MG/2 ML Vial ONE (10:19)
[2021-10-09] MEDS ORDERED: Lidocaine 1% PF 5 ML VIAL ONE ×2 (10:19)
[2021-10-09] MEDS ORDERED: Lidocaine 4% PF 5 ML AMP ONE (10:19)
[2021-10-09] MEDS ORDERED: Bupivacaine PF 0.75% SDV 10 ML ONE (10:19)
[2021-10-09] MEDS ORDERED: Triamcinolone 40 MG/ML VIAL ONE (10:19)
[2021-10-09] MEDS ORDERED: Metoclopramide HCl 10 MG/2 ML VIAL ONE (10:19)
[2021-10-09] MEDS ORDERED: Maxitrol 0.1% Opth Oint 3.5 GM TUBE ONE (10:19)
== END 2021-10-09 13:49 | disposition home or self-care (01) ==
LOC: SDC 08:22
PROVIDERS: ATTEND Ophthalmology Retina Specialist
PROC: 08T43ZZ Resection of Right Vitreous, Percutaneous Approach (ICD-10-PCS; principal; 2021-10-09)
PROC: 08PJ3JZ Removal of Synthetic Substitute from Right Lens, Percutaneous Approach (ICD-10-PCS; 2021-10-09)
PROC: 08RJ3JZ Replacement of Right Lens with Synthetic Substitute, Percutaneous Approach (ICD-10-PCS; 2021-10-09)
DX: T85.22XA Displacement of intraocular lens, initial encounter (principal); Z79.02 Long term (current) use of antithrombotics/antiplatelets; Z79.82 Long term (current) use of aspirin; Z79.899 Other long term (current) drug therapy; Z88.1 Allergy status to other antibiotic agents; Z95.1 Presence of aortocoronary bypass graft; Y77.2 Prosthetic and other implants, materials and accessory ophthalmic devices associated with adverse incidents
CPT/HCPCS: J0171; J0690; J2405; J2704; J2765; J3010; J3301; J3490; S0028; V2632